=== PATIENT | female | born 1980 | race Caucasian/White ===

== ENCOUNTER 2023-07-12 16:30 | Inpatient (IN) | payer OTHER ==
[2023-07-12 18:01] LABS: BASO % 0.9 % (0-2.0); EOS % 0.4 % (0-4.5); HEMATOCRIT 40.1 % (32.4-45.2); HEMOGLOBIN 13.3 GM/dL (10.7-15.3); LYMPH % 21.3 % (8-40); MCH 30.5 pg (25.7-33.7); MCHC 33.2 g/dl (32.0-36.0); MEAN CELL VOLUME 91.7 fl (80-96); MEAN PLT VOLUME 7.5 fl (7.5-11.1); NEUT % 68.4 % (42.8-82.8); PLATELET COUNT 287 10^3/uL (134-434); RBC 4.37 M/mm3 (3.60-5.2); RDW 14.4 % (11.6-15.6); WHITE BLOOD COUNT 8.3 K/mm3 (4.0-10.0)
[2023-07-12 18:14] LABS: INR 0.87 (0.83-1.09); PROTHROMBIN TIME (PATIENT) 9.9 SEC (9.7-13.0)
[2023-07-12 18:16] LABS: ACTIVATED PTT 28.3 SECONDS (25.2-36.5)
[2023-07-12 18:19] LABS: POTASSIUM 3.9 mmol/L (3.5-5.1)
[2023-07-12 18:54] VITALS: BMI 26.9
[2023-07-12 19:18] LABS: HIV INTERPRETATION NEGATIVE (NEGATIVE)
[2023-07-12 19:26] LABS: CALCIUM 9.2 mg/dL (8.5-10.1)
[2023-07-12 19:27] LABS: ALBUMIN 2.6 g/dl (3.4-5.0)
[2023-07-12 19:31] LABS: CREATININE 0.4 mg/dL (0.55-1.3)
[2023-07-12 19:33] LABS: BILIRUBIN,TOTAL 0.4 mg/dL (0.2-1); TOT PROT 6.4 g/dl (6.4-8.2)
[2023-07-12] MEDS: MISOPROSTOL 25 MCG TABLET (COMPOUNDED BY PHARMACY) PV SCH (19:55)
[2023-07-12] MEDS: DEXTROSE 5%-LACTATED RINGERS 1,000 ML IV SCH (21:15)
[2023-07-12] MEDS: SODIUM CHLORIDE 500 ML IV STA (21:15)
[2023-07-13] MEDS ORDERED: morphine SULFATE 4 MG/ML VIAL ONE ×2 (01:07→23:34)
[2023-07-13] MEDS: morphine SULFATE 4 MG/ML VIAL IVPB ONE (01:15)
[2023-07-13] MEDS ORDERED: INSULIN (NOVOLOG) ASPART 100 UNITS/ML 10ML VIAL ONE (10:44)
[2023-07-13] MEDS: INSULIN (NOVOLOG) ASPART 100 UNITS/ML 10ML VIAL SQ ONE (10:52)
[2023-07-13] MEDS ORDERED: OXYTOCIN 30 UNITS in 0.9% NS 30 UNIT/500 ML INFUS.BAG IVPB ONE (12:01)
[2023-07-13] MEDS: OXYTOCIN 30 UNITS in 0.9% NS 30 UNIT/500 ML INFUS.BAG IVPB SCH (12:08)
[2023-07-13] MEDS: SODIUM CHLORIDE 500 ML IV STA ×2 (14:26→19:45)
[2023-07-14] MEDS: morphine SULFATE 4 MG/ML VIAL IVPB ONE (00:23)
[2023-07-14] MEDS: MISOPROSTOL 25 MCG TABLET (COMPOUNDED BY PHARMACY) PV SCH (00:30)
[2023-07-14] MEDS: morphine CARPU-JECT 8 MG/1 ML DISP.SYRIN IVPB ONE (06:58)
[2023-07-14] MEDS ORDERED: FENTANYL/BUPIVACAINE/NS/PF - PCEA - 50 ML DISP.SYRIN EP ONE (08:55)
[2023-07-14] MEDS: FENTANYL/BUPIVACAINE/NS/PF - PCEA - 50 ML DISP.SYRIN EP SCH (09:30)
[2023-07-14] MEDS ORDERED: NALOXONE HCL 0.4 MG/ML VIAL IVPUSH PRN (09:33)
[2023-07-14] MEDS: SODIUM CHLORIDE 500 ML IV STA (12:08)
[2023-07-14] MEDS ORDERED: LIDOCAINE HCL 1% PRESERVATIVE FREE - 30ML VIAL ONE (13:14)
[2023-07-14 17:01] LABS: CORD BASE EXCESS -4.2 mmol/L (0-2); CORD HCO3 21.5 mmHg (20-29); CORD PCO2 42.1 mmHg (30-78); CORD pH 7.327 (7.14-7.44)
[2023-07-14 17:03] LABS: CORD BASE EXCESS -6.2 mmol/L (0-2); CORD HCO3 19.4 mmHg (20-29); CORD PCO2 39.2 mmHg (30-78); CORD pH 7.313 (7.14-7.44)
[2023-07-14] MEDS: OXYTOCIN 20 UNITS in 0.9% NS 20 UNIT/1,000 ML INFUS.BAG IV SCH (17:20)
[2023-07-14] MEDS ORDERED: WITCH HAZEL 50% (TUCKS) 40 PAD/JAR PAD TP PRN (17:44)
[2023-07-14] MEDS ORDERED: BENZOCAINE 28 GM HEMORRHOIDAL OINTMENT TP PRN (17:44)
[2023-07-14] MEDS ORDERED: ACETAMINOPHEN 325 MG TABLET (FP) PO PRN (17:44)
[2023-07-14] MEDS ORDERED: IBUPROFEN 600 MG TABLET (FP) PO ONE (18:24)
[2023-07-14] MEDS: IBUPROFEN 600 MG TABLET (FP) PO PRN (18:28)
[2023-07-14] MEDS: DOCUSATE SODIUM 100 MG CAPSULE (FP) PO SCH (21:36)
[2023-07-15 08:30] LABS: BASO % 0.2 % (0-2.0); EOS % 0.1 % (0-4.5); HEMATOCRIT 31.7 % (32.4-45.2); HEMOGLOBIN 10.8 GM/dL (10.7-15.3); LYMPH % 8.7 % (8-40); MCH 30.9 pg (25.7-33.7); MCHC 34.1 g/dl (32.0-36.0); MEAN CELL VOLUME 90.7 fl (80-96); MEAN PLT VOLUME 7.5 fl (7.5-11.1); PLATELET COUNT 221 10^3/uL (134-434); RDW 14.3 % (11.6-15.6); WHITE BLOOD COUNT 18.7 K/mm3 (4.0-10.0)
[2023-07-15] MEDS: FERROUS SO4 325 MG TABLET (FP) PO SCH (08:46)
[2023-07-15] MEDS: PRENATAL VITAMINS W/ FOLIC ACID TABLET (FP) PO SCH (11:05)
[2023-07-16 11:03] VITALS: BP 93/61; PULSE 91; RESP 16; TEMP 98.6
== END 2023-07-16 12:00 | disposition home or self-care (01) | DRG 768 ==
LOC: JLDR 16:30 → J3W 07-14 19:58
PROVIDERS: ADMIT Obstetrics & Gynecology Maternal & Fetal Medicine; ATTEND Obstetrics & Gynecology Maternal & Fetal Medicine
PROC: 0U9G7ZZ Drainage of Vagina, Via Natural or Artificial Opening (ICD-10-PCS; 2023-07-13)
PROC: 10907ZC Drainage of Amniotic Fluid, Therapeutic from Products of Conception, Via Natural or Artificial Opening (ICD-10-PCS; 2023-07-13)
PROC: 3E0P7VZ Introduction of Hormone into Female Reproductive, Via Natural or Artificial Opening (ICD-10-PCS; 2023-07-13)
PROC: 10D07Z6 Extraction of Products of Conception, Vacuum, Via Natural or Artificial Opening (ICD-10-PCS; principal; 2023-07-14)
PROC: 10H07YZ Insertion of Other Device into Products of Conception, Via Natural or Artificial Opening (ICD-10-PCS; 2023-07-14)
PROC: 0W8NXZZ Division of Female Perineum, External Approach (ICD-10-PCS; 2023-07-14)
DX: O24.414 Gestational diabetes mellitus in pregnancy, insulin controlled (principal); Z37.0 Single live birth; D68.62 Lupus anticoagulant syndrome; O99.12 Other diseases of the blood and blood-forming organs and certain disorders involving the immune mechanism complicating childbirth; O66.0 Obstructed labor due to shoulder dystocia; O75.81 Maternal exhaustion complicating labor and delivery; O99.893 Other specified diseases and conditions complicating puerperium; N89.8 Other specified noninflammatory disorders of vagina; O26.23 Pregnancy care for patient with recurrent pregnancy loss, third trimester; Z3A.39 39 weeks gestation of pregnancy
CPT/HCPCS: 36415; 36600; 59409; 80053; 82803; 82962; 85025; 85610; 85730; 86780; 86803; 86850; 86900; 86901; 87389; 88108; 88302-TC; 88305-TC; 88307-TC